=== PATIENT | female | born 1995 | race Two or more races ===

== ENCOUNTER 2023-05-28 18:32 | Emergency (ER) | payer MEDICAID ==
[~2023-05-28] VITALS: Ht 144.8 cm; Wt 47.7 kg
[2023-05-28 18:45] VITALS: BP 103/64; PULSE 56; RESP 20; TEMP 98.2; O2SAT 99
== END 2023-05-28 22:47 | disposition home or self-care (01) ==
LOC: ER 18:35
DX: H57.89 Other specified disorders of eye and adnexa (principal); H57.12 Ocular pain, left eye
CPT/HCPCS: 99281